=== PATIENT | female | born 1985 | race Caucasian/White ===

== ENCOUNTER → 2018-10-05 18:31 | Outpatient (CLI) | payer MEDICAID, SELFPAY ==
[2018-10-05 15:05] VITALS: BMI 32.2
[2018-10-06 17:15] LABS: Chlamydia Trachomatis by PCR POSITIVE (Negative); Neisserai gonorrhoeae by PCR Negative (Negative); Probe Check PASS; Sample Adequacy Control PASS; Specimen Processing Control PASS
[2018-10-13 11:11] LABS: HPV APTIMA, High Risk Positive (Negative)
== END ==
PROVIDERS: Nurse Practitioner Women's Health; Referring Provider Obstetrics & Gynecology; Visit Provider Obstetrics & Gynecology
DX: Z34.90 Encounter for supervision of normal pregnancy, unspecified, unspecified trimester (principal)
CPT/HCPCS: 87086; 87088; 87491; 87591; 87624; 88175; G0145

== ENCOUNTER → 2018-11-03 15:01 | Outpatient (CLI) | payer MEDICAID, SELFPAY ==
[2018-10-05 15:05] VITALS: BMI 32.2
[2018-11-03 15:24] LABS: Absolute Lymphocyte Count 1.59 X10^3/ul (0.83-4.51); Absolute Neutrophil Count 6.6 X10^3/uL (2.0-7.7); Basophil# 0.01 X10^3/uL; Basophil% 0.1 % (0-1); Eosinophil# 0.12 X10^3/uL; Eosinophils% 1.4 % (0-5); Hematocrit 34.6 % (37-47); Hemoglobin 11.7 g/dl (12.0-15.0); Lymphocyte # 1.59 X10^3/ul (4.0); Mean Corp Hgb Conc 33.8 g/gl (32-36); Mean Corpuscular Hgb 32.1 pg (27.0-32.0); Mean Corpuscular Volume 94.8 fL (81-99); Mean Platelet Vol. 10.1 fl (6.2-12.0); Monocyte# 0.51 X10^3/uL; Monocyte% 5.8 % (0-10); Neutrophil % 74.5 % (47-70); Platelet Count 200 K/mm3 (150-450); RBC Distribution Width CV 12.1 % (11.6-14.6); Red Blood Count 3.65 M/mm3 (4.2-5.4); White Blood Count 8.9 K/mm3 (4.4-11.0)
[2018-11-03 15:28] LABS: POSITIVE COUNT NO; POSITIVE DIFFERENTIAL NO; POSITIVE MORPHOLOGY NO
[2018-11-03 15:41] LABS: Glucose Challenge Gest 1H 50g 96 mg/dL (70-140)
[2018-11-03 16:34] LABS: HIV - WCH Non-Reactive (Nonreactive); Rubella IgG 137.7 IU/mL
[2018-11-04 20:21] LABS: Rapid Plasmin Reagin (RPR) NONREACTIVE (NONREACTIVE)
[2018-11-05 09:09] LABS: HEPATITIS B SURFACE AG Negative (Negative)
== END ==
PROVIDERS: Nurse Practitioner Women's Health; Referring Provider Obstetrics & Gynecology; Visit Provider Obstetrics & Gynecology
DX: O99.210 Obesity complicating pregnancy, unspecified trimester (principal); Z3A.00 Weeks of gestation of pregnancy not specified
CPT/HCPCS: 36415; 82950; 85025; 86592; 86703; 86762; 86850; 86900; 87340

== ENCOUNTER → 2018-12-10 14:05 | Outpatient (CLI) | payer MEDICAID, SELFPAY ==
[2018-12-03 10:06] VITALS: BMI 32.2
--- NOTE | 2018-12-10 14:08 | US_ITS ---
STUDY: SECOND AND THIRD TRIMESTER OBSTETRICAL ULTRASOUND REASON FOR EXAM: Female, 33 years old. Anatomy screen. G 5 P2 Ab2 LMP: 07/28/2018 TECHNIQUE: TECHNICAL QUALITY: Adequate. PRIOR ULTRASOUND: None. FINDINGS: There is a single intrauterine fetus. The fetus is in an transverse lie with the head on the maternal left side. There is demonstrated cardiac activity with a heart rate of 156 bpm. There is a normal amniotic fluid volume. The largest amniotic fluid pocket measures 3.1 x 5.1 cm. The placenta is posterior in location and is not low lying. There are Grade 0 placental changes. The cervix measures 3.8 in length. The bilateral adnexal regions are normal. BIOMETRY: BPD: 4.4 cm: 19 weeks, 3 days HC: 16.8 cm: 19 weeks, 3 days AC: 14 cm: 19 weeks, 3 days FL: 3 cm: 19 weeks, 1 days CI: 80 FL/BPD: 67 FL/AC: 21 HC/AC: 1.2 age by current US: 19 weeks, 3 days. BONNY by current US: 05/03/2019. Estimated weight: 282 grams, +/- 41 grams, 43 %. Age by LMP: 19 weeks, 2 days. BONNY by LMP: 05/04/2019. ANATOMY: Gender: Male Cranium: Normal lateral ventricles. Normal choroid plexus. Normal cerebellum. Normal cisterna magna. Normal face, nose and lips. Chest: Normal 4-chamber heart. Abdomen/Pelvis: Normal diaphragm. Normal stomach. Normal abdominal wall. Normal cord insertion. Normal 3 vessel cord. Normal kidneys. Normal bladder. Spine: Normal cervical spine. Normal thoracic spine. Normal lumbar spine. Normal sacrum. Extremities: Normal bilateral upper extremities. Normal bilateral lower extremities. US/OB Anatomy Scan IMPRESSION: Single live intrauterine of 19 week 3 day gestation with an BONNY of 05/03/2019. Normal anatomic survey. Posterior grade 0 placenta, not low lying. Electronically Signed: Roya Singh MD at 8:28 EDT , Service support ,
== END ==
PROVIDERS: Referring Provider Obstetrics & Gynecology; Visit Provider Obstetrics & Gynecology
DX: Z34.92 Encounter for supervision of normal pregnancy, unspecified, second trimester (principal)
CPT/HCPCS: 76805

== ENCOUNTER → 2019-01-05 13:38 | Outpatient (CLI) | payer MEDICAID, SELFPAY ==
[2019-01-05 10:27] VITALS: BMI 32.2
[2019-01-05 16:28] LABS: Chlamydia Trachomatis by PCR Negative (Negative); Neisserai gonorrhoeae by PCR Negative (Negative); Probe Check PASS; Sample Adequacy Control PASS; Specimen Processing Control PASS
== END ==
PROVIDERS: Referring Provider Obstetrics & Gynecology; Visit Provider Obstetrics & Gynecology
DX: O98.819 Other maternal infectious and parasitic diseases complicating pregnancy, unspecified trimester (principal); A74.9 Chlamydial infection, unspecified; Z3A.00 Weeks of gestation of pregnancy not specified
CPT/HCPCS: 87491; 87591

== ENCOUNTER → 2019-02-18 09:16 | Outpatient (CLI) | payer MEDICAID, SELFPAY ==
[2019-02-04 10:38] VITALS: BMI 32.2
[2019-02-18 10:24] LABS: Glucose Challenge Gest 1H 50g 121 mg/dL (70-140)
[2019-02-18 10:25] LABS: Absolute Lymphocyte Count 2.25 X10^3/ul (0.83-4.51); Absolute Neutrophil Count 9.7 X10^3/uL (2.0-7.7); Basophil# 0.02 X10^3/uL; Basophil% 0.2 % (0-1); Eosinophil# 0.17 X10^3/uL; Eosinophils% 1.3 % (0-5); Hematocrit 31.9 % (37-47); Hemoglobin 10.7 g/dl (12.0-15.0); Lymphocyte # 2.25 X10^3/ul (4.0); Lymphocyte % 17.5 % (19-41); Mean Corp Hgb Conc 33.5 g/gl (32-36); Mean Corpuscular Hgb 31.8 pg (27.0-32.0); Mean Corpuscular Volume 94.7 fL (81-99); Mean Platelet Vol. 9.7 fl (6.2-12.0); Monocyte# 0.66 X10^3/uL; Monocyte% 5.1 % (0-10); Neutrophil # 9.68 X10^3/uL (2.7-7.7); Neutrophil % 75.4 % (47-70); POSITIVE COUNT NO; POSITIVE DIFFERENTIAL NO; POSITIVE MORPHOLOGY NO; Platelet Count 201 K/mm3 (150-450); RBC Distribution Width CV 13.2 % (11.6-14.6); RBC Distribution Width SD 45.5 fl (35.1-43.9); Red Blood Count 3.37 M/mm3 (4.2-5.4); White Blood Count 12.9 K/mm3 (4.4-11.0)
== END ==
PROVIDERS: Referring Provider Obstetrics & Gynecology; Visit Provider Obstetrics & Gynecology
DX: Z34.90 Encounter for supervision of normal pregnancy, unspecified, unspecified trimester (principal)
CPT/HCPCS: 36415; 82950; 85025

== ENCOUNTER → 2019-03-22 08:53 | Outpatient (CLI) | payer MEDICAID, SELFPAY ==
[2019-03-16 11:33] VITALS: BMI 36.5
--- NOTE | 2019-03-22 08:55 | US_ITS ---
STUDY: SECOND AND THIRD TRIMESTER OBSTETRICAL ULTRASOUND - LIMITED REASON FOR EXAM: Female, 33 years old. growth. LMP: July 28, 2018. PRIOR ULTRASOUND: December 10, 2018. TECHNIQUE: TECHNICAL QUALITY: Adequate. FINDINGS: There is a single intrauterine fetus. The fetus is in a cephalic presentation. There is demonstrated cardiac activity with a heart rate of 147 bpm. There is a normal amniotic fluid volume. The largest amniotic fluid pocket measures 6.1 cm. The amniotic fluid index (MAICOL) is 18.82 cm. The placenta is posterior in location and is not low lying. There are Grade 1 placental changes. The cervix measures 2.2 cm in length. BIOMETRY: BPD: 8.48 cm: 34 weeks, 2 days HC: 30.81 cm: 34 weeks, 3 days AC: 29.97 cm: 34 weeks, 0 days FL: 6.51 cm: 33 weeks, 4 days Age by LMP: 33 weeks, 6 days. BONNY by LMP: May 04, 2019. age by prior US: 34 weeks, 0 days. BONNY by prior US: May 03, 2019. age by current US: 34 weeks, 1 days. BONNY by current US: May 02, 2019. Estimated weight: 2302 grams, +/- 336 grams, 44 percentile. Gender: Indeterminant US/OB Limited With Biometrics IMPRESSION: 1. Live single intrauterine at 34 weeks, 1 day. BONNY is May 02, 2019. There is adequate interval growth since prior ultrasound. 2. EFW of 2302 g. 3. MAICOL of 18.82 cm. 4. Posterior grade 1 placenta. 5. Vertex presentation. Electronically Signed: Ron Arce DO at 16:50 EDT Tel [phone], Service support ,
== END ==
PROVIDERS: Referring Provider Obstetrics & Gynecology; Visit Provider Obstetrics & Gynecology
DX: O36.5930 Maternal care for other known or suspected poor fetal growth, third trimester, not applicable or unspecified (principal); Z3A.33 33 weeks gestation of pregnancy
CPT/HCPCS: 76816

== ENCOUNTER → 2019-04-13 17:06 | Outpatient (CLI) | payer MEDICAID, SELFPAY ==
[2019-04-13 10:41] VITALS: BMI 36.5
[2019-04-13 19:49] LABS: Chlamydia Trachomatis by PCR Negative (Negative); Neisserai gonorrhoeae by PCR Negative (Negative); Probe Check PASS; Sample Adequacy Control PASS; Specimen Processing Control PASS
== END ==
LOC: LABSPEC 17:09 → LAB.FUTURE 17:43
PROVIDERS: Referring Provider Obstetrics & Gynecology; Visit Provider Obstetrics & Gynecology
DX: O98.813 Other maternal infectious and parasitic diseases complicating pregnancy, third trimester (principal); Z3A.36 36 weeks gestation of pregnancy
CPT/HCPCS: 87081; 87491; 87591

== ENCOUNTER 2019-04-14 15:56 | Outpatient (CLI) | payer MEDICAID, SELFPAY ==
[2019-04-13 10:41] VITALS: BMI 36.5
[2019-04-14 16:15] VITALS: BMI 35.6
[2019-04-14] MEDS: Cefazolin 2 GM in 0.9% Normal Saline 100 ML IV (17:23)
[2019-04-14 17:46] LABS: Anion Gap 7 (5-15); BUN 8 mg/dL (7-18); BUN/Creat Ratio 14.1 RATIO (10-20); Calcium,Total 8.6 mg/dL (8.5-10.1); Chloride 105 mmol/L (98-107); Creatinine, Serum 0.57 mg/dL (0.55-1.02); EST Glomerular Filtration Rate 131 mL/min (>60); Est Glom Filt Rate - Afr Amer 159 mL/min (>60); Glucose 89 mg/dL (74-106); Potassium 4.1 mmol/L (3.5-5.1); Sodium Level 134 mmol/L (136-145)
[2019-04-14 17:53] LABS: Differential Indicated SCAN CRITERIA MET; Hematocrit 32.6 % (37-47); Hemoglobin 10.8 g/dL (12.0-15.0); Mean Corp Hgb Conc 33.1 g/dL (32-36); Mean Corpuscular Hgb 31.6 pg (27.0-32.0); Mean Corpuscular Volume 95.3 fL (81-99); Mean Platelet Vol. 10.1 fl (6.2-12.0); POSITIVE COUNT NO; POSITIVE DIFFERENTIAL YES; POSITIVE MORPHOLOGY NO; Platelet Count 176 K/mm3 (150-450); RBC Distribution Width CV 13.5 % (11.6-14.6); RBC Distribution Width SD 46.6 fl (35.1-43.9); Red Blood Count 3.42 M/mm3 (4.2-5.4); White Blood Count 11.4 K/mm3 (4.4-11.0)
[2019-04-14 17:54] LABS: Absolute Lymphocyte Count 0.54 X10^3/uL (0.83-4.51); Absolute Neutrophil Count 10.3 X10^3/uL (2.0-7.7); Basophil# 0.01 X10^3/uL; Basophil% 0.1 % (0-1); Eosinophil# 0.03 X10^3/uL; Eosinophils% 0.3 % (0-5); Lymphocyte # 0.54 X10^3/ul (4.0); Lymphocyte % 4.8 % (19-41); Monocyte# 0.39 X10^3/uL; Monocyte% 3.4 % (0-10); Neutrophil # 10.28 X10^3/uL (2.7-7.7); Neutrophil % 90.5 % (47-70)
[2019-04-14 17:57] LABS: Anisocytosis RARE; Macrocytosis RARE; Platelet Estimate ADEQUATE (ADEQ); Red Cell Morphology N CHROM NORMAL (NORM C&C)
--- NOTE | 2019-04-16 02:39 | OB.TRI.PN_ITS ---
Progress Notes Date of Service: 04/14/19 Progress Note: 33-year-old at 37 weeks presents with left facial cellulitis after dental abscess drainage. Patient is having pain in the area but it is now improving with Tylenol with codeine. Patient denies any fever or difficulty breathing. She has some limited mobility of the left left jaw and was seen in the dentist office who opened up the tooth and drained out 5 cc of infected fluid and recommended that she be evaluated to ensure the is okay. heart tone 140s to 150s moderate variability reactive no decelerations category 1 tracing [place]: Irregular contractions Assessment and plan 33-year-old with left facial cellulitis on amoxicillin per dentist recommendation no leukocytosis, 1 dose of IV Ancef given and patient afebrile discharge to home for oral antibiotics and follow-up with dentist as an outpatient. Laboratory Studies: Laboratory Tests 04/14/19 04/14/19 Range/Units 16:55 16:55 WBC 11.4 H (4.4-11.0) K/mm3 RBC 3.42 L (4.2-5.4) M/mm3 Hgb 10.8 L (12.0-15.0) g/dL Hct 32.6 L (37-47) % MCV 95.3 (81-99) fL MCH 31.6 (27.0-32.0) pg MCHC 33.1 (32-36) g/dL RDW Std Deviation 46.6 H (35.1-43.9) fl RDW Coeff of Boogie 13.5 (11.6-14.6) % Plt Count 176 (150-450) K/mm3 MPV 10.1 (6.2-12.0) fl Immature Gran % (Auto) 0.900 (0.0-0.9) % Neut % (Auto) 90.5 H (47-70) % Lymph % (Auto) 4.8 L (19-41) % [place] % (Auto) 3.4 (0-10) % Eos % (Auto) 0.3 (0-5) % Baso % (Auto) 0.1 (0-1) % Absolute Neuts (auto) 10.3 H (2.0-7.7) X10^3/uL Absolute Lymphs (auto) 0.54 L (0.83-4.51) X10^3/uL Differential Comment SEE COMMENT Platelet Estimate ADEQUATE (ADEQ) RBC Morphology N CHROM (NORM C&C) NORMAL Anisocytosis RARE Macrocytosis RARE Sodium 134 L (136-145) mmol/L Potassium 4.1 (3.5-5.1) mmol/L Chloride 105 (98-107) mmol/L Carbon Dioxide 22.0 (21.0-32.0) mmol/L Anion Gap 7 (5-15) BUN 8 (7-18) mg/dL Creatinine 0.57 (0.55-1.02) mg/dL Estim Creat Clear Calc 118.30 ml/min Est GFR (MDRD) Af Amer 159 (>60) mL/min Est GFR (MDRD) Non-Af 131 (>60) mL/min BUN/Creatinine Ratio 14.1 (10-20) RATIO Glucose 89 (74-106) mg/dL Calcium 8.6 (8.5-10.1) mg/dL Multi Select Codes - Urinary/Genital Urinary/Genital CPT Codes: 99282-03 non-stress test Interp
== END 2019-04-14 18:45 | disposition home or self-care (01) ==
LOC: WPOUT 15:56 → WP 15:57
PROVIDERS: Referring Provider Obstetrics & Gynecology; Visit Provider Obstetrics & Gynecology
DX: O26.893 Other specified pregnancy related conditions, third trimester (principal); L03.211 Cellulitis of face; Z3A.37 37 weeks gestation of pregnancy
CPT/HCPCS: 96365; 36415; 59025; 59050; 80048; 85025; 99218; G0378

== ENCOUNTER 2019-04-15 12:15 | Observation (INO) | payer MEDICAID, SELFPAY ==
[2019-04-14 16:15] VITALS: BMI 35.6
[2019-04-15 12:47] VITALS: BMI 35.3
[2019-04-15 13:36] LABS: Absolute Lymphocyte Count 0.49 X10^3/uL (0.83-4.51); Absolute Neutrophil Count 9.2 X10^3/uL (2.0-7.7); Basophil# 0.03 X10^3/uL; Basophil% 0.3 % (0-1); Eosinophil# 0.02 X10^3/uL; Eosinophils% 0.2 % (0-5); Hematocrit 32.6 % (37-47); Hemoglobin 11.2 g/dL (12.0-15.0); Lymphocyte # 0.49 X10^3/ul (4.0); Lymphocyte % 4.6 % (19-41); Mean Corp Hgb Conc 34.4 g/dL (32-36); Mean Corpuscular Hgb 32.2 pg (27.0-32.0); Mean Corpuscular Volume 93.7 fL (81-99); Mean Platelet Vol. 10.3 fl (6.2-12.0); Monocyte# 0.75 X10^3/uL; Monocyte% 7.1 % (0-10); NRBC Flagged by Analyzer 0 % (0-5); Neutrophil # 9.19 X10^3/uL (2.7-7.7); Neutrophil % 86.8 % (47-70); POSITIVE DIFFERENTIAL YES; Platelet Count 191 K/mm3 (150-450); RBC Distribution Width CV 13.5 % (11.6-14.6); RBC Distribution Width SD 46.3 fl (35.1-43.9); Red Blood Count 3.48 M/mm3 (4.2-5.4); White Blood Count 10.6 K/mm3 (4.4-11.0)
[2019-04-15 13:37] LABS: Differential Indicated SCAN CRITERIA MET
[2019-04-15] MEDS: Lactated Ringers 1,000 ML 125 ML IV ×3 (13:38→22:18)
[2019-04-15 13:59] LABS: ALB/GLOB Ratio 0.5 RATIO (0.9-2.4); AST(SGOT) 10 U/L (15-37); Alanine Aminotransfer ALT/SGPT 10 U/L (13-56); Albumin, Serum 2.4 g/dL (3.2-5.0); Alkaline Phosphatase 216 U/L (45-117); Anion Gap 9 (5-15); BUN 5 mg/dL (7-18); BUN/Creat Ratio 8.8 RATIO (10-20); Calcium,Total 8.6 mg/dL (8.5-10.1); Chloride 105 mmol/L (98-107); Creatinine, Serum 0.57 mg/dL (0.55-1.02); EST Glomerular Filtration Rate 131 mL/min (>60); Est Glom Filt Rate - Afr Amer 159 mL/min (>60); Globulin 4.8 g/dL (2.2-4.2); Glucose 112 mg/dL (74-106); Potassium 3.7 mmol/L (3.5-5.1); Protein, Total 7.2 g/dL (6.4-8.2); Sodium Level 136 mmol/L (136-145)
[2019-04-15] MEDS: oxyCODONE 5 MG Tablet PO (14:32)
[2019-04-15 14:46] VITALS: BP 139/74; PULSE 100; RESP 24; TEMP 37.4
--- NOTE | 2019-04-15 15:45 | HP.PCM_ITS ---
- Problem List (1) Cellulitis, face Status: Acute (2) Anemia during in second trimester Status: Acute Comment: Start iron (3) LGSIL on Pap smear of cervix Status: Acute (4) ASCUS with positive high risk human papillomavirus of vagina Status: Acute (5) Chlamydia infection affecting Status: Acute Qualifiers: Trimester: third trimester Qualified Code(s): O98.813 - Other maternal infectious and parasitic diseases complicating , third trimester; A74.9 - Chlamydial infection, unspecified Comment: 10/07/18:treated. Repeat negative and also negative at 36 wk (6) Tobacco use complicating Status: Acute Qualifiers: Trimester: third trimester Qualified Code(s): O99.333 - Smoking (tobacco) complicating , third trimester (7) Status: Acute Qualifiers: Weeks of gestation: 37 weeks Qualified Code(s): Z3A.37 - 37 weeks gestation of Comment: Declines genetic and carrier screen, FOB sickle cell carrier. (8) Supervision of other normal Status: Acute Comment: PRR Grav 4/2 BONNY 05/04/19 boy Chloe. VÍCTOR Santos (many) (9) Asthma Status: Chronic Qualifiers: Asthma severity: mild Asthma persistence: intermittent Asthma complication type: uncomplicated Qualified Code(s): J45.20 - Mild intermittent asthma, uncomplicated History Date of Admission: 04/16/19 Final BONNY: 05/04/19 Gestational age: 37 Weeks and 3 Days History of this : This is a 33 year-old, , at 37 weeks 2 days weeks gestational age presents with increasing left facial swelling and cellulitis after abscess tooth was drained. Patient was placed on clindamycin several days ago and then switched to amoxicillin yesterday whenever she had drainage by her dentist. Since then she has had increasing pain and swelling in the area and limited mobility of her jaw and low-grade elevated temperatures. She denies any difficulty breathing chest pain or shortness of breath but does feel it scratchiness to her throat.. Medical History: Medical History (Last Reviewed 04/15/19 @ 17:31 by Chelo Singletary) Asthma (Chronic) J45.909 Abnormal Pap smear of cervix R87.619 Surgical History: Surgical History (Last Reviewed 04/15/19 @ 11:33 by Kavitha Carbajal) S/P right knee surgery Z98.890 Allergies No Known Allergies Allergy (Verified 04/15/19 11:32) Home Medications: Home Medications Acetaminophen with Codeine [Acetaminophen-Cod #3 Tablet] 1 ea PO 04/14/19 Amoxicillin 1,750 mg PO BID 04/14/19 Vits [Prenatabs FA] 1 tab PO DAILY MDD 04/14/19 Docosahexanoic Acid [ DHA] 200 mg PO DAILY 04/15/19 Smoking Status: Heavy Smoker (>10/day) Number of Fetus(es): 1 NST - FHR Rate Baby A Baseline: 130 Variability:: Moderate Accelerations:: 15 x 15 Decelerations:: None NST Reactive:: Yes FHR Category:: Category I Uterine Activity:: Irregular contractions History Past Pregnancies: Past Pregnancies Previous term deliveries uncomplicated vaginal Expected Infant Delivery Method: Spontaneous Vaginal Review of Systems Constitutional: Reports: Fever, Night Sweats. Denies: Malaise Eyes: Denies: Blurred vision, Vision Change HEENT: Denies: Head Aches, Visual Changes Cardiovascular: Denies: Chest Pain, Palpitations Respiratory: Denies: Cough, Shortness of Breath, Wheezing Gastrointestinal: Reports: Nausea. Denies: Abdominal Pain, Diarrhea, Vomiting Genitourinary: Denies: Dysuria, Hematuria Musculoskeletal: Denies: Joint Pain, Muscle pain Skin: Denies: Lesions, Rash Neurological: Denies: Blurred vision, Focal weakness, Headaches Psychiatric: Denies: Anxiety, Depression Endocrine: Denies: Heat/ Cold Intolerance Hematologic/ Lymphatic: Denies: Easy Bruising, Easy Bleeding Physical Exam Vitals: Vital Signs Temp Pulse Resp BP 99.3 F H 100 24 H 139/74 H 04/15/19 14:46 04/15/19 14:46 04/15/19 14:46 04/15/19 14:46 General: Alert, Oriented x3, - - in significant pain HEENT: Atraumatic, - - left facial swelling to infraorbital and submandibular region, no drainage, tender and limited jow mobility Cardiovascular: Regular Rhythm, Normal S1, Normal S2, Tachycardic Lungs: Clear to auscultation, Normal air movement Abdomen: Soft, Non Tender, Gravid Neurological: Deep Tendon Reflexes 2+/4 and Symmetrical. 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: Normal external genitalia Estimated gestational size: Appropriate for gestational size Presentation: Cephalic Cervix Dilation (cm): 2 Assessment/Plan All Active Problems (Last Reviewed 04/15/19 @ 17:31 by Chelo Singletary) Cellulitis, face (Acute) Anemia during in second trimester (Acute) LGSIL on Pap smear of cervix (Acute) ASCUS with positive high risk human papillomavirus of vagina (Acute) Chlamydia infection affecting (Acute) Tobacco use complicating (Acute) (Acute) Supervision of other normal (Acute) This is a 33 year-old, , at 37w2d weeks gestational age presents with left facial cellulitis status post dental abscess drainage. Patient admitted for observation and IV antibiotics with Zosyn. IV steroids started for severe inflammatory reaction. Called and discussed with dentist, he had already opened up the area similar to a root canal and drained fluid which he states he did not send for culture due to likely it being polymicrobial. ENT consultation and no airway compromised. Monitor and provide support.
[2019-04-15] MEDS: dexAMETHasone 10 MG/ML Vial IV (16:04)
[2019-04-15] MEDS: Acetaminophen 325 MG Tablet 650 MG PO ×2 (16:12→22:18)
--- NOTE | 2019-04-15 16:18 | PCM.CONS.GEN ---
Problem List (1) Cellulitis, face Status: Acute Reason for Consult Date of Consultation: 04/15/19 Reason for Consultation: facial cellulitis after dental abscess, 37 weeks gestation History of Present Illness: The patient is a 33 year old F who underwent a dental procedure of the left lower mandibular dental premolar tooth as there has been infection in this location. Initially this had shown improvement however this abruptly worsened over the last 24 to 48 hours with significant pain and swelling of the left cheek. She is recently had a root canal procedure through her dentist. She had been seen in the ER and treated with clindamycin as an outpatient however continued to have progression of her pain and swelling and presented today for evaluation and admission for intravenous antibiotic therapy. I was called by Dr. Khoi Walls who requested consultation for assessment of airway and further management recommendations. We did discuss that this was a likely dental source of infection but in the absence of an oral surgeon for consultation I would be agreeable to see her for evaluation however should this proved to be in need of dental treatment that transfer for availability of this sort of surgical procedure may be required. The patient denies any significant dysphasia or shortness of breath. She denies any hoarseness. She does have some neck pain on the left side radiating along the side of the neck that is worsened with swallowing. She reports outpatient oral antibiotic therapy of clindamycin failed to produce relief. She denies any prior facial or dental infections. She is 37 weeks of gestation and subsequent to admission has developed some contractions. [] Past Medical History Past Medical History (Chronic Problems): Chronic Problems (Last Reviewed 04/15/19 @ 11:33 by Kavitha Carbajal) Asthma (Chronic) Medical History: Medical History (Last Reviewed 04/15/19 @ 11:33 by Kavitha Carbajal) Asthma (Chronic) J45.909 Abnormal Pap smear of cervix R87.619 Allergies No Known Allergies Allergy (Verified 04/15/19 11:32) Home Medications: Ambulatory Orders Medication Instructions Recorded docosahexanoic acid 200 mg capsule 200 mg PO DAILY #30 cap 11/04/18 Acetaminophen with Codeine 1 ea PO 04/14/19 [Acetaminophen-Cod #3 Tablet] Amoxicillin 1,750 mg PO BID 04/14/19 Vits [Prenatabs FA] 1 tab PO DAILY 04/14/19 Surgical History: Surgical History (Last Reviewed 04/15/19 @ 11:33 by Kavihta Carbajal) S/P right knee surgery Z98.890 Smoking Status: Heavy Smoker (>10/day) Review of Systems Constitutional: Denies: Anorexia, Chills, Fever, Night Sweats Eyes: Denies: Blurred vision, Double vision, Pain HEENT: Reports: Sore Throat, - - Pain and swelling over the left cheek. Denies: Difficulty Hearing, Difficulty Swallowing, Ear Pain, Eye Pain, Head Aches, Nasal Congestion, Sinus Congestion, Sinus Drainage Cardiovascular: Denies: Chest Pain, Chest Pressure, Chest Tightness Respiratory: Denies: Cough, Hemoptysis, Shortness of Breath Gastrointestinal: Denies: Nausea, Vomiting Skin: Denies: Dryness, Jaundice Neurological: Denies: Balance problems, Blurred vision, Difficulty swallowing Psychiatric: Denies: Anxiety, Depression Endocrine: Reports: - - Hematologic/ Lymphatic: Denies: Anemia, Easy Bruising, Easy Bleeding Patient Problems: Active and Suspected Problems (Last Reviewed 04/15/19 @ 11:33 by Kavitha Carbajal) Cellulitis, face (Acute) Subjective: Patient reports she is having pain in the left cheek and difficulty opening the mouth. Objective: Alert female in mild distress due to pain of the left cheek where there is noted to be firm induration but minimal erythema. She is being monitored in her 37th week of gestation. - Physical Exam General: Alert, Oriented x3, Cooperative HEENT: Atraumatic, PERRLA, EOMI Oral: Moist Mucosa, No Gingival or Mucosal Lesions/ Ulcerations, - - There is noted to be a 2 cm area of induration over the left cheek. Examination of the dentition shows some mild erythema of the gingiva of the left mandible however there is no erythema or exudates. She does have a Molar tooth and reports that the premolar anterior to this had recently had a dental canal prior to the onset of this facial swelling and pain. There is noted to be 2 cm trismus. Tongue is noted to be soft and mobile. Floor mouth is normal and soft. The submental area is normal and soft. There is noted to be some mild tenderness along the left side of the neck but no significant palpable lymphadenopathy is noted. There is no crepitus or fluctuance over the area of induration of the cheek. There is no significant erythema, pointing, or drainage. Neck: Supple, No Nodes, Trachea Midline Lungs: Normal air movement, No rhonchi, No wheeze Cardiovascular: Regular rate, Regular Rhythm Abdomen: - - Gravid Extremities: No clubbing, No cyanosis, No edema Skin: No rashes, No breakdown Neurological: Cranial nerves II-XII grossly intact Psych/Mental Status: Alert and oriented to time, place, person, mood and affect Vital Signs Temp Pulse Resp BP 99.3 F H 100 24 H 139/74 H 04/15/19 14:46 04/15/19 14:46 04/15/19 14:46 04/15/19 14:46 Weight: 90.492 kg Body Mass Index (BMI) 35.3 Intake and Output for Last 24 Hours 04/13/19 04/14/19 04/15/19 23:59 23:59 23:59 Intake Total 272.92 / 272.92 Output Total 200 / 200 Balance 72.92 / 72.92 Laboratory Tests Past 24 Hrs 04/15/19 04/15/19 04/15/19 13:10 13:10 14:05 WBC 10.6 RBC 3.48 L Hgb 11.2 L Hct 32.6 L MCV 93.7 MCH 32.2 H MCHC 34.4 RDW Std Deviation 46.3 H RDW Coeff of Boogie 13.5 Plt Count 191 MPV 10.3 Immature Gran % (Auto) 1.000 H Neut % (Auto) 86.8 H Lymph % (Auto) 4.6 L [place] % (Auto) 7.1 Eos % (Auto) 0.2 Baso % (Auto) 0.3 Absolute Neuts (auto) 9.2 H Absolute Lymphs (auto) 0.49 L Nucleated RBC % 0 Differential Comment COMMENT Sodium 136 Potassium 3.7 Chloride 105 Carbon Dioxide 22.0 Anion Gap 9 BUN 5 L Creatinine 0.57 Estim Creat Clear Calc 118.30 Est GFR (MDRD) Af Amer 159 Est GFR (MDRD) Non-Af 131 BUN/Creatinine Ratio 8.8 L Glucose 112 H Calcium 8.6 Total Bilirubin 0.40 AST 10 L ALT 10 L Alkaline Phosphatase 216 H Total Protein 7.2 Albumin 2.4 L Globulin 4.8 H Albumin/Globulin Ratio 0.5 L Blood Type O POSITIVE Antibody Screen NEGATIVE Assessment/Plan All Active Problems (Last Reviewed 04/15/19 @ 11:33 by Kavitha Carbajal) Cellulitis, face (Acute) Anemia during in second trimester (Acute) LGSIL on Pap smear of cervix (Acute) ASCUS with positive high risk human papillomavirus of vagina (Acute) Chlamydia infection affecting (Acute) Tobacco use complicating (Acute) (Acute) Supervision of other normal (Acute) Patient is a 33-year-old female and her 37th week of gestation with a new dental infection with cellulitis of the left cheek after root canal. This is failed outpatient therapy on clindamycin oral therapy. She has been admitted for intravenous antibiotic therapy of Zosyn. She has been given dose of Decadron to help with pain and inflammation at my recommendation by Dr. Khoi Walls. I see no evidence of hugh abscess, floor of mouth edema, or threatened Ranjan's angina. We did discuss symptoms of this including fullness of the floor mouth, difficulty moving her tongue, change in voice, or difficulty swallowing or breathing. The patient denies the symptoms currently. I do not see any hugh purulence or erythema around the reported tooth that was worked on recently. This remains the most likely cause of her facial cellulitis however. I would expect improvement on intravenous antibiotic therapy in the next 24 to 48 hours. Attention to pain management, warm compresses and massage to the area, and fluid hydration is advised. Given that she is in her 37th week of gestation I would anticipate that nature of this infection may precipitate delivery. If imaging would be indicated ultrasound of this area would likely provide adequate information and reduce exposure to ionizing radiation from x-rays and would be preferred in the setting. I have discussed my recommendations with the patient, her nurse, and Dr. Khoi Walls who is in agreement with this course of action.
--- NOTE | 2019-04-15 21:35 | NURSING ---
This RN performing V/S every hour and shift assessment. these both to be documented in QS system.
[2019-04-16] MEDS: dexAMETHasone 10 MG/ML Vial IV ×2 (00:12→09:14)
[2019-04-16 02:25] VITALS: BP 118/66; PULSE 90; RESP 20; TEMP 36
[2019-04-16] MEDS: Acetaminophen 325 MG Tablet 650 MG PO ×2 (04:13→10:59)
[2019-04-16 06:00] VITALS: BP 98/51; PULSE 74; RESP 20; TEMP 36.4
[2019-04-16 06:11] LABS: Absolute Lymphocyte Count 0.77 X10^3/uL (0.83-4.51); Absolute Neutrophil Count 8.7 X10^3/uL (2.0-7.7); Basophil# 0.01 X10^3/uL; Basophil% 0.1 % (0-1); Hematocrit 27.4 % (37-47); Hemoglobin 9.2 g/dL (12.0-15.0); Lymphocyte # 0.77 X10^3/ul (4.0); Lymphocyte % 7.6 % (19-41); Mean Corp Hgb Conc 33.6 g/dL (32-36); Mean Corpuscular Hgb 31.6 pg (27.0-32.0); Mean Corpuscular Volume 94.2 fL (81-99); Mean Platelet Vol. 10.3 fl (6.2-12.0); Monocyte# 0.61 X10^3/uL; NRBC Flagged by Analyzer 0 % (0-5); Neutrophil # 8.65 X10^3/uL (2.7-7.7); Neutrophil % 84.8 % (47-70); Platelet Count 207 K/mm3 (150-450); RBC Distribution Width CV 13.4 % (11.6-14.6); RBC Distribution Width SD 46.5 fl (35.1-43.9); Red Blood Count 2.91 M/mm3 (4.2-5.4); White Blood Count 10.2 K/mm3 (4.4-11.0)
[2019-04-16] MEDS: Lactated Ringers 1,000 ML 125 ML IV (06:28)
[2019-04-16 09:12] VITALS: BP 108/68; PULSE 99; RESP 16; TEMP 36.4; O2SAT 99
[2019-04-16] MEDS: Prenatal Vits Tablet 1 TABLET PO (09:14)
[2019-04-16] MEDS: Ferrous Sulfate 325 MG Tablet PO (09:14)
--- NOTE | 2019-04-16 09:30 | US_ITS ---
STUDY: OBSTETRICAL ULTRASOUND - BIOPHYSICAL PROFILE REASON FOR EXAM: Female, 33 years old. Evaluate well-being LMP: 07/28/2018 PRIOR ULTRASOUND: 03/22/2019 TECHNIQUE: Transabdominal TECHNICAL QUALITY: Adequate. FINDINGS: There is a single intrauterine fetus. The fetus is in a cephalic presentation. There is demonstrated cardiac activity with a heart rate of 136 bpm. There is a normal amniotic fluid volume. The largest amniotic fluid pocket measures 3.7 x 4.6 cm. The amniotic fluid index (MAICOL) is 13.6 cm. The placenta is posterior in location and is not low lying. There are Grade 2 placental changes. Age by LMP: 37 weeks, 3 days. BONNY by LMP: 05/04/2019. age by prior US: 37 weeks, 5 days. BONNY by prior US: 05/02/2019. BIOPHYSICAL PROFILE: Breathing Movements (FBM): 0 Gross Body Movements (GBM): 2 Tone (FT): 2 Amniotic Fluid Volume (AFV): 2 TOTAL SCORE: 8 US/Biophysical Prof W/O Non Stres IMPRESSION: biophysical profile of 01/29. Electronically Signed: Naeem Cyr DO at 11:15 EDT Tel , Service support ,
--- NOTE | 2019-04-16 09:37 | PCM.PN.OB ---
Patient Problems: Active and Suspected Problems (Last Reviewed 04/15/19 @ 17:31 by Chelo Singletary) Cellulitis, face (Acute) Subjective: patient doing well significant decreased swelling no CP SOB N V tolerating po and able to sleep comfortably, afebrile Objective: fht 140 moderate variability reactive one variable decel, overall reassuring and now cat I tracing [place]: regular initially then intermittent - Physical Exam General: Alert, Oriented x3 HEENT: - Oral: - - decreased facial swelling less than half the size with greater range of motion Lungs: Clear to auscultation Cardiovascular: Regular rate Abdomen: Soft, Non Tender Extremities: No edema Vital Signs Temp Pulse Resp BP 97.6 F L 74 20 H 98/51 L 04/16/19 06:00 04/16/19 06:00 04/16/19 06:00 04/16/19 06:00 Weight: 199 lb 8 oz Body Mass Index (BMI) 35.3 Intake and Output for Last 24 Hours 04/14/19 04/15/19 04/16/19 23:59 23:59 23:59 Intake Total 1303.34 / 1303.34 1050.00 / 1050.00 Output Total 200 / 200 Balance 1103.34 / 1103.34 1050.00 / 1050.00 Laboratory Tests Past 24 Hrs 04/15/19 04/15/19 04/15/19 13:10 13:10 14:05 WBC 10.6 RBC 3.48 L Hgb 11.2 L Hct 32.6 L MCV 93.7 MCH 32.2 H MCHC 34.4 RDW Std Deviation 46.3 H RDW Coeff of Boogie 13.5 Plt Count 191 MPV 10.3 Immature Gran % (Auto) 1.000 H Neut % (Auto) 86.8 H Lymph % (Auto) 4.6 L [place] % (Auto) 7.1 Eos % (Auto) 0.2 Baso % (Auto) 0.3 Absolute Neuts (auto) 9.2 H Absolute Lymphs (auto) 0.49 L Nucleated RBC % 0 Differential Comment COMMENT Sodium 136 Potassium 3.7 Chloride 105 Carbon Dioxide 22.0 Anion Gap 9 BUN 5 L Creatinine 0.57 Estim Creat Clear Calc 118.30 Est GFR (MDRD) Af Amer 159 Est GFR (MDRD) Non-Af 131 BUN/Creatinine Ratio 8.8 L Glucose 112 H Calcium 8.6 Total Bilirubin 0.40 AST 10 L ALT 10 L Alkaline Phosphatase 216 H Total Protein 7.2 Albumin 2.4 L Globulin 4.8 H Albumin/Globulin Ratio 0.5 L Blood Type O POSITIVE Antibody Screen NEGATIVE 04/16/19 06:00 WBC 10.2 RBC 2.91 L Hgb 9.2 L Hct 27.4 L MCV 94.2 MCH 31.6 MCHC 33.6 RDW Std Deviation 46.5 H RDW Coeff of Boogie 13.4 Plt Count 207 MPV 10.3 Immature Gran % (Auto) 1.500 H Neut % (Auto) 84.8 H Lymph % (Auto) 7.6 L [place] % (Auto) 6.0 Eos % (Auto) 0.0 Baso % (Auto) 0.1 Absolute Neuts (auto) 8.7 H Absolute Lymphs (auto) 0.77 L Nucleated RBC % 0 Differential Comment Sodium Potassium Chloride Carbon Dioxide Anion Gap BUN Creatinine Estim Creat Clear Calc Est GFR (MDRD) Af Amer Est GFR (MDRD) Non-Af BUN/Creatinine Ratio Glucose Calcium Total Bilirubin AST ALT Alkaline Phosphatase Total Protein Albumin Globulin Albumin/Globulin Ratio Blood Type Antibody Screen Medical Necessity - Tobacco Use Smoking Status: Heavy Smoker (>10/day) Assessment/Plan All Active Problems (Last Reviewed 04/15/19 @ 17:31 by Chelo Singletary) Cellulitis, face (Acute) Anemia during in second trimester (Acute) LGSIL on Pap smear of cervix (Acute) ASCUS with positive high risk human papillomavirus of vagina (Acute) Chlamydia infection affecting (Acute) Tobacco use complicating (Acute) (Acute) Supervision of other normal (Acute) 33 yo @ 37 weeks presents with facial cellulitis facial cellulitis significant improvement with IV zosyn and steroids. plan transition to augmentin today, doing well variable decel- recommend BPP
--- NOTE | 2019-04-16 10:38 | DCINST_ITS ---
- Discharge Diagnoses Current Active Problems: Current Active and Chronic Problems (Last Reviewed 04/15/19 @ 17:31 by Chelo Singletary) Cellulitis, face (Acute) You will use the following diet at home:: Regular Your food should be the consistency of: Soft (bite-sized & easy to chew/swallow) Discharge Activity: Return to Normal Activity May resume sexual activity in: No Restrictions Call your doctor if your incision/area has: Sudden Increased Bleeding, Increased Pain/ Swelling, Increased Redness Call your doctor if you observe: Fever of 101 or Higher, Chest pain, - - trouble swallowing or breathing, regular contractions or decreased movements Allergies/Adverse Reactions: Allergies diphenhydramine [From Benadryl] Adverse Reaction (Verified 04/15/19 19:47) Anaphylaxis Medications to take at Discharge Acetaminophen with Codeine [Acetaminophen-Cod #3 Tablet] 1 ea PO 04/14/19 Amoxicillin/Potassium Clav [Augmentin 875-125 Tablet] 1 ea PO BID #20 tab 04/16/19 Docosahexanoic Acid [ Dha] 200 mg PO DAILY #30 cap 04/16/19 Ferrous Sulfate 325 mg PO DAILY@0800 #30 tab 04/16/19 Vits [Prenatabs FA ] 1 tab PO DAILY #30 tab MDD 04/16/19 The following prescriptions were given: Amoxicillin/Potassium Clav [Augmentin 875-125 Tablet] 1 ea PO BID #20 tab Transmission Status: Received by [facility]/pharmacy #[id number] Ferrous Sulfate 325 mg PO DAILY@0800 #30 tab Transmission Status: Received by [facility] Vits [Prenatabs FA ] 1 tab PO DAILY #30 tab MDD Transmission Status: Received by [facility] Docosahexanoic Acid [ Dha] 200 mg PO DAILY #30 cap Transmission Status: Received by [facility] Primary Care Physician: Paola Delgado [Primary Care Provider] - Test Results: Test results from this visit will be discussed in further detail at your follow- up appointment, if applicable.
[2019-04-16 11:26] VITALS: BP 113/51; PULSE 86; RESP 16; TEMP 35.8; O2SAT 99
[2019-04-16] MEDS: Amox/Clavulanate 875 MG Tablet PO (12:41)
== END 2019-04-16 14:55 | disposition home or self-care (01) ==
LOC: WP 04-18 07:08
PROVIDERS: Admitting Provider Obstetrics & Gynecology; Referring Provider Obstetrics & Gynecology; Visit Provider Obstetrics & Gynecology
DX: O99.713 Diseases of the skin and subcutaneous tissue complicating pregnancy, third trimester (principal); Z3A.37 37 weeks gestation of pregnancy; K04.7 Periapical abscess without sinus; O99.513 Diseases of the respiratory system complicating pregnancy, third trimester; J45.20 Mild intermittent asthma, uncomplicated; O99.333 Smoking (tobacco) complicating pregnancy, third trimester; F17.200 Nicotine dependence, unspecified, uncomplicated; L03.211 Cellulitis of face
CPT/HCPCS: 96361 ×2; 96365; 96366 ×2; 96375; 96376; 36415; 59025; 59050; 76819; 80053; 85025; 86850; 86900; 86901; 87040; J7120; A4216

== ENCOUNTER 2019-04-17 16:30 | Outpatient (CLI) | payer MEDICAID, SELFPAY ==
[2019-04-17 17:16] VITALS: BMI 36.7
--- NOTE | 2019-04-17 21:13 | OB.TRI.PN_ITS ---
Progress Notes Date of Service: 04/17/19 Progress Note: heart tone 135 moderate variability reactive no decelerations category 1 tracing [place]: No regular contractions Assessment and plan abnormal testing and facial cellulitis, reassuring heart tones and reactive NST good movement. DC home kick counts. - Problem List (1) Abnormal test Status: Acute (2) Cellulitis, face Status: Acute Multi Select Codes - Urinary/Genital Urinary/Genital CPT Codes: 96231-73 non-stress test Interp
== END 2019-04-17 17:25 | disposition home or self-care (01) ==
LOC: WPOUT 16:42 → WP 16:43
PROVIDERS: Referring Provider Obstetrics & Gynecology; Visit Provider Obstetrics & Gynecology
DX: O26.899 Other specified pregnancy related conditions, unspecified trimester (principal); L03.211 Cellulitis of face; P09 Abnormal findings on neonatal screening; Z3A.00 Weeks of gestation of pregnancy not specified
CPT/HCPCS: 59025; 59050; 99218; G0378

== ENCOUNTER 2019-05-04 07:15 | Inpatient (IN) | payer MEDICAID, SELFPAY ==
[2019-04-29 09:46] VITALS: BMI 35.6
[2019-05-04 07:30] VITALS: BMI 36.8
[2019-05-04] MEDS: Lactated Ringers 1,000 ML 50 ML IV (07:40)
[2019-05-04] MEDS: Oxytocin 30 units/NS 500 ml 30 UNITS/500 ML IV.SOLN IV (08:05)
[2019-05-04 09:04] LABS: Absolute Lymphocyte Count 2.63 X10^3/uL (0.83-4.51); Absolute Neutrophil Count 10.1 X10^3/uL (2.0-7.7); Basophil# 0.05 X10^3/uL; Basophil% 0.4 % (0-1); Eosinophils% 1.4 % (0-5); Hematocrit 34.1 % (37-47); Hemoglobin 11.3 g/dL (12.0-15.0); Lymphocyte # 2.63 X10^3/ul (4.0); Lymphocyte % 18.5 % (19-41); Mean Corp Hgb Conc 33.1 g/dL (32-36); Mean Corpuscular Hgb 31.6 pg (27.0-32.0); Mean Corpuscular Volume 95.3 fL (81-99); Mean Platelet Vol. 10.5 fl (6.2-12.0); Monocyte# 0.99 X10^3/uL; NRBC Flagged by Analyzer 0 % (0-5); Neutrophil # 10.11 X10^3/uL (2.7-7.7); POSITIVE COUNT YES; RBC Distribution Width CV 14.2 % (11.6-14.6); RBC Distribution Width SD 49.4 fl (35.1-43.9); Red Blood Count 3.58 M/mm3 (4.2-5.4); White Blood Count 14.2 K/mm3 (4.4-11.0)
[2019-05-04 09:06] LABS: Differential Indicated SCAN CRITERIA MET
[2019-05-04 09:27] LABS: Platelet Estimate ADEQUATE (ADEQ)
--- NOTE | 2019-05-04 09:50 | NURSING ---
Lab resulted plt count unable to be resulted due to plt clumping. CBC redrawn.
[2019-05-04 09:57] LABS: Absolute Lymphocyte Count 2.76 X10^3/uL (0.83-4.51); Absolute Neutrophil Count 11.5 X10^3/uL (2.0-7.7); Basophil# 0.06 X10^3/uL; Basophil% 0.4 % (0-1); Eosinophil# 0.23 X10^3/uL; Eosinophils% 1.4 % (0-5); Hematocrit 34.8 % (37-47); Hemoglobin 11.7 g/dL (12.0-15.0); Lymphocyte # 2.76 X10^3/ul (4.0); Lymphocyte % 17.3 % (19-41); Mean Corp Hgb Conc 33.6 g/dL (32-36); Mean Corpuscular Hgb 31.9 pg (27.0-32.0); Mean Corpuscular Volume 94.8 fL (81-99); Mean Platelet Vol. 10.1 fl (6.2-12.0); Monocyte% 7.5 % (0-10); NRBC Flagged by Analyzer 0 % (0-5); Neutrophil # 11.45 X10^3/uL (2.7-7.7); Neutrophil % 71.7 % (47-70); Platelet Count 238 K/mm3 (150-450); RBC Distribution Width CV 14.3 % (11.6-14.6); RBC Distribution Width SD 49.2 fl (35.1-43.9); Red Blood Count 3.67 M/mm3 (4.2-5.4)
[2019-05-04 10:05] LABS: International Normalized Ratio 0.9; Prothrombin Time (Protime)PT. 12.4 SECONDS (11.7-14.9)
[2019-05-04] MEDS: Lactated Ringers 500 ML 999 ML IV ×2 (10:10→12:03)
[2019-05-04 10:13] LABS: Partial Thromboplast Time 27.5 Seconds (24.1-36.2)
[2019-05-04] MEDS: fentaNYL-bupivacaine (epidural) 100 ML BAG EPIDURAL ×2 (12:04→16:01)
[2019-05-04] MEDS: Lactated Ringers 1,000 ML 200 ML IV (15:23)
[2019-05-04] MEDS: Oxytocin 30 units/NS 500 ml 30 UNITS/500 ML IV.SOLN 334 UNITS IV (17:20)
--- NOTE | 2019-05-04 17:28 | HP.PCM_ITS ---
- Problem List (1) Encounter for induction of labor Status: Acute (2) Anemia during in second trimester Status: Acute Comment: Start iron (3) LGSIL on Pap smear of cervix Status: Acute (4) ASCUS with positive high risk human papillomavirus of vagina Status: Acute (5) Chlamydia infection affecting Status: Acute Qualifiers: Comment: 10/07/18:treated. Repeat negative and also negative at 36 wk (6) Tobacco use complicating Status: Acute Qualifiers: Comment: encouraged cessation (7) Status: Acute Qualifiers: Comment: Declines genetic, ntd, and carrier screen, FOB sickle cell carrier. (8) Supervision of other normal Status: Acute Comment: PRR Grav 4/2 BONNY 05/04/19 boy Lexi Santos. VÍCTOR Lao (many) (9) Asthma Status: Chronic Qualifiers: History Date of Admission: 04/16/19 Final BONNY: 05/04/19 Gestational age: 40 Weeks and 0 Days History of this : This is a 33 year-old, , at 40 weeks gestational age presents IOL on her due date. no vb lof good fm no regular ctx. Medical History: Medical History (Last Reviewed 04/29/19 @ 09:43 by Kavitha Carbajal) Asthma (Chronic) J45.909 Abnormal Pap smear of cervix R87.619 Surgical History: Surgical History (Last Reviewed 04/29/19 @ 09:43 by Kavitha Carbajal) S/P right knee surgery Z98.890 Allergies diphenhydramine [From Benadryl] Allergy (Verified 05/04/19 07:39) Anaphylaxis Penicillins Allergy (Verified 05/04/19 07:32) Unknown Home Medications: Home Medications Vits [Prenatabs FA ] 1 tab PO DAILY #30 tab MDD 04/16/19 Albuterol Inhaler [Ventolin Hfa] 05/04/19 Ferrous Sulfate 05/04/19 Smoking Status: Current every day smoker NST - FHR Rate Baby A Baseline: 130 Variability:: Moderate Accelerations:: 15 x 15 Decelerations:: None NST Reactive:: Yes FHR Category:: Category I Uterine Activity:: q 2-3 History Past Pregnancies: Past Pregnancies 2 previous term Labs: Mom's Labs & Results 05/04/19 05/04/19 05/04/19 07:48 07:48 09:45 WBC 14.2 H 16.0 H RBC 3.58 L 3.67 L Hgb 11.3 L 11.7 L Hct 34.1 L 34.8 L MCV 95.3 94.8 MCH 31.6 31.9 MCHC 33.1 33.6 RDW Std Deviation 49.4 H 49.2 H RDW Coeff of Boogie 14.2 14.3 Plt Count 238 MPV 10.5 10.1 Immature Gran % (Auto) 1.700 H 1.700 H Neut % (Auto) 71.0 H 71.7 H Lymph % (Auto) 18.5 L 17.3 L [place] % (Auto) 7.0 7.5 Eos % (Auto) 1.4 1.4 Baso % (Auto) 0.4 0.4 Absolute Neuts (auto) 10.1 H 11.5 H Absolute Lymphs (auto) 2.63 2.76 Nucleated RBC % 0 0 Platelet Estimate ADEQUATE PT INR APTT Blood Type O POSITIVE Antibody Screen NEGATIVE 05/04/19 09:45 WBC RBC Hgb Hct MCV MCH MCHC RDW Std Deviation RDW Coeff of Boogie Plt Count MPV Immature Gran % (Auto) Neut % (Auto) Lymph % (Auto) [place] % (Auto) Eos % (Auto) Baso % (Auto) Absolute Neuts (auto) Absolute Lymphs (auto) Nucleated RBC % Platelet Estimate PT 12.4 INR 0.9 APTT 27.5 Blood Type Antibody Screen Course Did the patient receive Yes care? Labs Blood Type: O RH: POSITIVE RPR/VDRL/Syphilis Nonreactive Rubella status Immune HbSAg Negative Date Done: 11/03/18 Chlamydia Negative Gonorrhea Negative HIV/AIDS Non-Reactive Group B Strep: Negative Current Obstetrical History Gestational Diabetes No Incompetent Cervix No Infertility No IUGR No Macrosomia No Hypertension/Pre-eclampsia No Placenta Previa/Abruption No PTL/PROM No Uterine anomaly No Oligohydramnios No Polyhydramnios No Multiple gestation No Past Medical History Asthma Yes: albuterol Diabetes No Hypertension No Heart disease No Mitral valve prolapse No Neurologic/Seizure disorder/ No Migraines Kidney disease No Liver disease No Varicosities No Clotting disorders/Hx of DVT No Thyroid Dysfunction No Other medical diseases No Psychiatric disorders No Major trauma No Abnormal PAP smear Yes Sleep apnea No Mammogram in the last 2 years No Social History Marital Status: SINGLE Alleged father Shilo Dominguez Smoking Yes Smoking Status Current every day smoker How long have you used pt was given norco during a previous stay at [facility] (years)? this facility Expected Delivery Method: Spontaneous Vaginal Review of Systems Constitutional: Denies: Fever, Malaise Eyes: Denies: Blurred vision, Vision Change HEENT: Denies: Head Aches, Visual Changes Cardiovascular: Denies: Chest Pain, Palpitations Respiratory: Denies: Cough, Shortness of Breath, Wheezing Gastrointestinal: Denies: Abdominal Pain, Diarrhea, Nausea, Vomiting Genitourinary: Denies: Dysuria, Hematuria Musculoskeletal: Denies: Joint Pain, Muscle pain Skin: Denies: Lesions, Rash Neurological: Denies: Blurred vision, Focal weakness, Headaches Psychiatric: Denies: Anxiety, Depression Endocrine: Denies: Heat/ Cold Intolerance Hematologic/ Lymphatic: Denies: Easy Bruising, Easy Bleeding Physical Exam General: Alert, Cooperative, No apparent distress HEENT: Atraumatic, Normocephalic. Negative for: Thyromegaly, Lymphadenopathy Cardiovascular: Regular rate Lungs: Normal air movement Abdomen: Soft, Non Tender, Gravid Neurological: Deep Tendon Reflexes 2+/4 and Symmetrical, Neuro grossly intact. Negative for: Clonus SLATE CUTTER: Normal external genitalia. Negative for: Vulvar lesions Estimated gestational size: Appropriate for gestational size Presentation: Cephalic Assessment/Plan All Active Problems (Last Reviewed 04/29/19 @ 09:43 by Kavitha Carbajal) Encounter for induction of labor (Acute) Anemia during in second trimester (Acute) LGSIL on Pap smear of cervix (Acute) ASCUS with positive high risk human papillomavirus of vagina (Acute) Chlamydia infection affecting (Acute) Tobacco use complicating (Acute) (Acute) Supervision of other normal (Acute) Abnormal test (Resolved) Cellulitis, face (Resolved) This is a 33 year-old, at 40 weeks gestational age presents IOL . iol pitocin, arom clear fluid, epidural gbs neg
--- NOTE | 2019-05-04 17:33 | PCM.OPRPT ---
Problem List (1) Encounter for induction of labor Status: Acute (2) Anemia during in second trimester Status: Acute Comment: Start iron (3) LGSIL on Pap smear of cervix Status: Acute (4) ASCUS with positive high risk human papillomavirus of vagina Status: Acute (5) Chlamydia infection affecting Status: Acute Qualifiers: Comment: 10/07/18:treated. Repeat negative and also negative at 36 wk (6) Tobacco use complicating Status: Acute Qualifiers: Comment: encouraged cessation (7) Status: Acute Qualifiers: Comment: Declines genetic, ntd, and carrier screen, FOB sickle cell carrier. (8) Supervision of other normal Status: Acute Comment: PRR Grav 4/2 BONNY 05/04/19 boy Chloe. VÍCTOR Santos (many) (9) Asthma Status: Chronic Qualifiers: Vaginal Delivery Maternal Presentation: Elective Induction Induction labor 40 weeks with Pitocin Method of Induction: Pitocin Amniotic Membrane Rupture Type: Artificial Amniotic Fluid Description: Clear Final BONNY: 05/04/19 Gestational age: 40 Weeks 0 Days Date of Procedure: 05/04/19 Pre-Operative Diagnosis: iol elective Post-Operative Diagnosis: same Surgery/ Procedure Performed: Spontaneous Vaginal Delivery Type of Anesthesia: Epidural Description of Procedure: Patient began pushing and delivered the head in the MIROSLAVA presentation. The head was delivered atraumatically . The anterior and posterior shoulders delivered without complication followed by the rest of the and the was placed on the maternal abdomen. Delayed cord clamping was employed for approximately 60 seconds. Cord was clamped and cut and gentle traction was applied to the cord and the placenta delivered spontaneously immediately following it was noted to be intact with three-vessel cord. The perineum and vagina were inspected and noted to have no laceration. EBL was 150 cc. Patient and tolerated delivery well. Presentation: MIROSLAVA Placental Delivery Description: Spontaneous Placenta Disposition: [facility] Multi Select Codes - Urinary/Genital Urinary/Genital CPT Codes: 48336 Vaginal Delivery+ PP Care([facility])
[2019-05-05] VITALS: BP 101/70; PULSE 70; RESP 18; TEMP 36
[2019-05-05 04:15] VITALS: BP 101/61; PULSE 70; RESP 18; TEMP 36.6
[2019-05-05] MEDS: Naproxen 250 MG Tablet 500 MG PO ×2 (04:18→13:37)
--- NOTE | 2019-05-05 07:45 | PN.OBGYN_ITS ---
Patient Problems: Active and Suspected Problems (Last Reviewed 04/29/19 @ 09:43 by Kavitha Carbajal) Encounter for induction of labor (Acute) Subjective: doing well no complaints pain controlled no CP SOB N V ambulating well tolerating po lochia moderate, going well - Physical Exam General: Alert, Oriented x3 Vital Signs Temp Pulse Resp BP 98 F 70 18 101/61 05/05/19 04:15 05/05/19 04:15 05/05/19 04:15 05/05/19 04:15 Weight: 207 lb 12.8 oz Body Mass Index (BMI) 36.8 Intake and Output for Last 24 Hours 05/03/19 05/04/19 05/05/19 23:59 23:59 23:59 Intake Total 3013.53 / 3013.53 Output Total 1675 / 1675 Balance 1338.53 / 1338.53 Laboratory Tests Past 24 Hrs 05/04/19 05/04/19 05/04/19 07:48 07:48 09:45 WBC 14.2 H 16.0 H RBC 3.58 L 3.67 L Hgb 11.3 L 11.7 L Hct 34.1 L 34.8 L MCV 95.3 94.8 MCH 31.6 31.9 MCHC 33.1 33.6 RDW Std Deviation 49.4 H 49.2 H RDW Coeff of Boogie 14.2 14.3 Plt Count 238 MPV 10.5 10.1 Immature Gran % (Auto) 1.700 H 1.700 H Neut % (Auto) 71.0 H 71.7 H Lymph % (Auto) 18.5 L 17.3 L [place] % (Auto) 7.0 7.5 Eos % (Auto) 1.4 1.4 Baso % (Auto) 0.4 0.4 Absolute Neuts (auto) 10.1 H 11.5 H Absolute Lymphs (auto) 2.63 2.76 Nucleated RBC % 0 0 Platelet Estimate ADEQUATE PT INR APTT Blood Type O POSITIVE Antibody Screen NEGATIVE 05/04/19 09:45 WBC RBC Hgb Hct MCV MCH MCHC RDW Std Deviation RDW Coeff of Boogie Plt Count MPV Immature Gran % (Auto) Neut % (Auto) Lymph % (Auto) [place] % (Auto) Eos % (Auto) Baso % (Auto) Absolute Neuts (auto) Absolute Lymphs (auto) Nucleated RBC % Platelet Estimate PT 12.4 INR 0.9 APTT 27.5 Blood Type Antibody Screen Medical Necessity - Tobacco Use Smoking Status: Current every day smoker Assessment/Plan All Active Problems (Last Reviewed 04/29/19 @ 09:43 by Kavitha Carbajal) Encounter for induction of labor (Acute) Anemia during in second trimester (Acute) LGSIL on Pap smear of cervix (Acute) ASCUS with positive high risk human papillomavirus of vagina (Acute) Chlamydia infection affecting (Acute) Tobacco use complicating (Acute) (Acute) Supervision of other normal (Acute) Abnormal test (Resolved) Cellulitis, face (Resolved) s/p PPD # 1 1. routine post delivery care 2. breast feeding- support given 3. rh positive 4. rubella immune
[2019-05-05 08:19] VITALS: BP 117/81; PULSE 99; RESP 16; TEMP 36.6; O2SAT 96
[2019-05-05] MEDS: Acetaminophen 500 MG Tablet 1000 MG PO ×2 (09:01→18:30)
[2019-05-05 11:39] VITALS: BP 108/73; PULSE 98; RESP 16; TEMP 36.4; O2SAT 96
[2019-05-05 15:38] VITALS: BP 108/77; PULSE 99; RESP 16; TEMP 36.4; O2SAT 97
[2019-05-05] MEDS: Senna/Docusate Sodium 1 Tablet PO (18:30)
[2019-05-05 19:35] VITALS: BP 111/73; PULSE 89; RESP 18; TEMP 36.5; O2SAT 99
[2019-05-06 02:00] VITALS: BP 102/59; PULSE 74; RESP 16; TEMP 36.6
--- NOTE | 2019-05-06 04:32 | PCM.PN.OB ---
Patient Problems: Active and Suspected Problems (Last Reviewed 04/29/19 @ 09:43 by Kavitha Carbajal) Encounter for induction of labor (Acute) Subjective: doing well no complaints pain controlled no CP SOB N V ambulating well tolerating po lochia moderate, going well - Physical Exam General: Alert, Oriented x3 Vital Signs Temp Pulse Resp BP Pulse Ox 97.8 F 74 16 102/59 L 99 05/06/19 02:00 05/06/19 02:00 05/06/19 02:00 05/06/19 02:00 05/05/19 19:35 Oxygen Delivery Method Room Air Weight: 207 lb 12.8 oz Body Mass Index (BMI) 36.8 Intake and Output for Last 24 Hours 05/04/19 05/05/19 05/06/19 23:59 23:59 23:59 Intake Total 3013.53 / 3013.53 Output Total 1675 / 1675 Balance 1338.53 / 1338.53 Medical Necessity - Tobacco Use Smoking Status: Current every day smoker Assessment/Plan All Active Problems (Last Reviewed 04/29/19 @ 09:43 by Kavitha Carbajal) Encounter for induction of labor (Acute) Anemia during in second trimester (Acute) LGSIL on Pap smear of cervix (Acute) ASCUS with positive high risk human papillomavirus of vagina (Acute) Chlamydia infection affecting (Acute) Tobacco use complicating (Acute) (Acute) Supervision of other normal (Acute) Abnormal test (Resolved) Cellulitis, face (Resolved) s/p PPD # 2 1. routine post delivery care 2. breast feeding- support given 3. rh positive 4. rubella immune
--- NOTE | 2019-05-06 04:33 | DCINST_ITS ---
Discharge Diet: No Restrictions Discharge Activity: Return to Normal Activity, May not drive while taking narcotic pain medications., May Shower May resume sexual activity in: 4-6 weeks Call your doctor if your incision/area has: Continuous Slow Oozing, Sudden Increased Bleeding, Increased Pain/ Swelling, Increased Redness, Foul Smelling Discharge Additional Instructions: If you experience any of the following, contact your healthcare provider. * Bleeding that soaks a pad every hour for 2 hours * Fever 100.4 or higher * Unrelieved incision or abdominal pain * Swelling, redness, discharge or bleeding from your incision or episiotomy site * Your incision begins to separate * Problems urinating (including inability to urinate or burning while urinating). * Visual changes * Severe headache * Flu-like symptoms * Pain or redness in one of both of your breasts * Pain, warmth, tenderness or swelling in your legs, especially the calf area * Frequent nausea and vomiting * Symptoms of depression or anxiety If you experience any of the following, call 911 or go to the nearest Emergency Room. * Chest pain * Problems breathing * Seizure activity * Partial or complete paralysis of a body part, slurred speech, weakness or drooping of the face, or a sudden inability to walk or hold your balance Allergies/Adverse Reactions: Allergies diphenhydramine [From Benadryl] Allergy (Verified 05/04/19 07:39) Anaphylaxis Penicillins Allergy (Verified 05/04/19 07:32) Unknown Medications to take at Discharge Vits [Prenatabs FA ] 1 tab PO DAILY #30 tab MDD 04/16/19 Albuterol Inhaler [Ventolin Hfa] 05/04/19 Ferrous Sulfate 05/04/19 Naproxen [Naprosyn] 250 - 500 mg PO Q8H PRN PRN #30 tab 05/06/19 The following prescriptions were given: Naproxen [Naprosyn] 250 - 500 mg PO Q8H PRN PRN #30 tab PRN Reason: MILD PAIN Transmission Status: Pending to [facility] Please Follow Up With: Mitra Rosario MD - [phone] When: Call to make an appointment with your doctor in 6 weeks. If you had elevated Blood pressure or 4th degree laceration you will need to be seen in 2 weeks. Primary Care Physician: Paola Delgado [Primary Care Provider] - Test Results: Test results from this visit will be discussed in further detail at your follow- up appointment, if applicable.
[2019-05-06 09:00] VITALS: BP 122/84; PULSE 86; RESP 14; TEMP 36.7; O2SAT 99
[2019-05-06] MEDS: Acetaminophen 500 MG Tablet 1000 MG PO (09:07)
[2019-05-06 13:38] VITALS: BP 107/70; PULSE 90; RESP 18; TEMP 36.8; O2SAT 98
== END 2019-05-06 17:00 | disposition home or self-care (01) | DRG 560 ==
PROVIDERS: Admitting Provider Obstetrics & Gynecology; Referring Provider Obstetrics & Gynecology; Visit Provider Obstetrics & Gynecology
DX: O75.9 Complication of labor and delivery, unspecified (principal); O99.334 Smoking (tobacco) complicating childbirth; F17.200 Nicotine dependence, unspecified, uncomplicated; O99.02 Anemia complicating childbirth; D64.9 Anemia, unspecified; O99.52 Diseases of the respiratory system complicating childbirth; J45.909 Unspecified asthma, uncomplicated; Z3A.40 40 weeks gestation of pregnancy; Z37.0 Single live birth
CPT/HCPCS: 59025; 59050; 85025; 85610; 85730; 86850; 86900; 86901; 99218; J7120; G0378

== ENCOUNTER → 2020-04-23 12:57 | Outpatient (CLI) | payer MEDICAID, SELFPAY ==
[2020-04-23 11:10] VITALS: BMI 36.8
[2020-04-23 13:16] LABS: Absolute Lymphocyte Count 1.97 X10^3/uL (0.83-4.51); Absolute Neutrophil Count 10.2 X10^3/uL (2.0-7.7); Basophil# 0.03 X10^3/uL; Basophil% 0.2 % (0-1); Eosinophil# 0.14 X10^3/uL; Eosinophils% 1.1 % (0-5); Hematocrit 34.5 % (37-47); Hemoglobin 11.4 g/dL (12.0-15.0); Lymphocyte # 1.97 X10^3/ul (4.0); Lymphocyte % 15.2 % (19-41); Mean Corpuscular Hgb 31.4 pg (27.0-32.0); Monocyte# 0.56 X10^3/uL; Monocyte% 4.3 % (0-10); NRBC Flagged by Analyzer 0 % (0-5); Neutrophil # 10.15 X10^3/uL (2.7-7.7); Neutrophil % 78.5 % (47-70); Platelet Count 197 K/mm3 (150-450); RBC Distribution Width CV 13.3 % (11.6-14.6); Red Blood Count 3.63 M/mm3 (4.2-5.4); White Blood Count 12.9 K/mm3 (4.4-11.0)
[2020-04-23 13:32] LABS: Glucose Challenge Gest 1H 50g 90 mg/dL (70-140)
[2020-04-23 13:40] LABS: Amphetamine Urine VISTA NEGATIVE (<1000 ng/mL); Barbiturate Urine VISTA NEGATIVE (< 200 ng/mL); Benzodiazepine Urine VISTA NEGATIVE (< 200 ng/mL); Cocaine Urine VISTA NEGATIVE (< 300 ng/mL); Ecstacy Urine VISTA NEGATIVE (< 500 ng/mL); Methadone Urine VISTA NEGATIVE (< 300 ng/mL); PCP Urine VISTA NEGATIVE (< 25 ng/mL); THC Urine VISTA NEGATIVE (< 50 ng/mL); Vista UDS pH Range 6
[2020-04-23 14:20] LABS: HIV - WCH Non-Reactive (Nonreactive); Hepatitis B Surface Antigen Non-Reactive (Nonreactive); Hepatitis C Antibody Non-Reactive (Nonreactive); Rubella IgG 102.2 IU/mL
[2020-04-24 15:49] LABS: Chlamydia Trachomatis by PCR Negative (Negative); Neisserai gonorrhoeae by PCR Negative (Negative)
[2020-04-24 15:50] LABS: Probe Check PASS; Sample Adequacy Control PASS; Specimen Processing Control PASS
[2020-04-26 06:28] LABS: Rapid Plasmin Reagin (RPR) NONREACTIVE (NONREACTIVE)
== END ==
PROVIDERS: Referring Provider Obstetrics & Gynecology; Visit Provider Obstetrics & Gynecology
DX: Z34.90 Encounter for supervision of normal pregnancy, unspecified, unspecified trimester (principal)
CPT/HCPCS: 36415; 80307; 82950; 85025; 86592; 86703; 86762; 86803; 86850; 86900; 86901; 87086; 87088; 87340; 87491; 87591

== ENCOUNTER → 2020-05-18 15:45 | Outpatient (CLI) | payer MEDICAID, SELFPAY ==
[2020-05-09 08:12] VITALS: BMI 36.8
--- NOTE | 2020-05-18 15:46 | US_ITS ---
STUDY: SECOND AND THIRD TRIMESTER OBSTETRICAL ULTRASOUND - LIMITED REASON FOR EXAM: Female, 34 years old GROWTH LMP: 09/28/2019. PRIOR ULTRASOUND: None. TECHNIQUE: Transabdominal TECHNICAL QUALITY: Adequate. FINDINGS: There is a single intrauterine fetus. The fetus is in a cephalic presentation. There is demonstrated cardiac activity with a heart rate of 132 bpm. There is a normal amniotic fluid volume. The largest amniotic fluid pocket measures 4.3 cm. The amniotic fluid index (MAICOL) is 14.4 cm. The placenta is fundal and posterior in location. There are Grade 1 placental changes. The cervix measures 3.3 cm in length. BIOMETRY: BPD: 8.17 cm: 32 weeks, 5 days HC: 29.95 cm: 33 weeks, 1 days AC: 28.74 cm: 32 weeks, 5 days FL: 6.46 cm: 33 weeks, 2 days Age by LMP: 33 weeks, 2 days. BONNY by LMP: 07/04/2020. age by current US: 33 weeks, 0 days. BONNY by current US: 07/06/2020. Estimated weight: 2108 grams, +/- 316 grams, 43 percentile. US/OB Limited With Biometrics IMPRESSION: Single live intrauterine gestation with a mean gestational age of 33 weeks. Electronically Signed: Tyron Melendez, at 12:05 EDT , Service support ,
== END ==
PROVIDERS: Referring Provider Obstetrics & Gynecology; Visit Provider Obstetrics & Gynecology
DX: Z34.90 Encounter for supervision of normal pregnancy, unspecified, unspecified trimester (principal); O09.30 Supervision of pregnancy with insufficient antenatal care, unspecified trimester
CPT/HCPCS: 76816

== ENCOUNTER 2020-06-05 15:30 | Outpatient (CLI) | payer MEDICAID, SELFPAY ==
[2020-05-25 15:44] VITALS: BMI 36.8
[2020-06-05 15:42] VITALS: BMI 35.6
[2020-06-05 15:43] VITALS: BP 114/82; PULSE 90; TEMP 36.8; O2SAT 97
[2020-06-05 16:23] LABS: ROM Internal Control Test YES-OK TO RESULT pt. (Internal QC); ROM Patient Test Negative (Negative)
--- NOTE | 2020-06-05 16:30 | OB.TRI.PN ---
Progress Notes Date of Service: 06/05/20 Progress Note: Patient presents for triage evaluation secondary to possible ruptured membranes FHT: 130 Moderate variability reactive no decelerations category I tracing [place]: irregular Contractions Assessment and plan: false labor negative rom plus Reactive NST, reassuring maternal and status patient discharged to home to follow-up as scheduled. See problem list details for additional plan information. Laboratory Studies: Laboratory Tests 06/05/20 Range/Units 15:55 Vag Amniotic Fld Detect Negative (Negative) - Problem List (1) Intact amniotic membranes Status: Acute Multi Select Codes - Urinary/Genital Urinary/Genital CPT Codes: 12100-23 non-stress test Interp
[2020-06-06 20:20] VITALS: TEMP 36.5; O2SAT 98
[2020-06-06 20:23] VITALS: BP 117/74; PULSE 100
== END 2020-06-05 16:35 | disposition home or self-care (01) ==
PROVIDERS: Referring Provider Obstetrics & Gynecology; Visit Provider Obstetrics & Gynecology
DX: O47.9 False labor, unspecified (principal); Z3A.00 Weeks of gestation of pregnancy not specified
CPT/HCPCS: 59050; 84112; 99218; G0378

== ENCOUNTER 2020-06-06 20:06 | Outpatient (CLI) | payer MEDICAID, SELFPAY ==
[2020-06-05 15:42] VITALS: BMI 35.6
[2020-06-06 20:21] VITALS: BMI 35.6
[2020-06-06 20:50] LABS: ROM Internal Control Test YES-OK TO RESULT pt. (Internal QC); ROM Patient Test Negative (Negative)
--- NOTE | 2020-06-07 08:29 | OB.TRI.PN_ITS ---
Progress Notes Date of Service: 06/06/20 Progress Note: Patient presents for triage evaluation secondary to decreased movement FHT: 140 Moderate variability reactive no decelerations category I tracing [place]: irregular Contractions Assessment and plan: decreased movement Reactive NST, reassuring maternal and status patient discharged to home to follow-up as scheduled. See problem list details for additional plan information. Laboratory Studies: Laboratory Tests 06/06/20 Range/Units 20:20 Vag Amniotic Fld Detect Negative (Negative) - Problem List (1) Decreased movements, third trimester, fetus 1 Status: Acute Multi Select Codes - Urinary/Genital Urinary/Genital CPT Codes: 29375-27 non-stress test Interp
== END 2020-06-06 21:05 | disposition home or self-care (01) ==
LOC: WPOUT 20:10 → OBT 20:10
PROVIDERS: Visit Provider Obstetrics & Gynecology
DX: O36.8130 Decreased fetal movements, third trimester, not applicable or unspecified (principal); Z3A.00 Weeks of gestation of pregnancy not specified
CPT/HCPCS: 59025; 59050; 84112; 99218; G0378

== ENCOUNTER → 2020-06-08 | Outpatient (CLI) | payer MEDICAID, SELFPAY ==
[2020-06-08 16:14] VITALS: BMI 36.1
== END | disposition home or self-care (01) ==
LOC: LABSPEC 16:56
PROVIDERS: Referring Provider Obstetrics & Gynecology; Visit Provider Obstetrics & Gynecology
DX: Z34.90 Encounter for supervision of normal pregnancy, unspecified, unspecified trimester (principal)
CPT/HCPCS: 87081

== ENCOUNTER 2020-06-24 00:50 | Outpatient (CLI) | payer MEDICAID, SELFPAY ==
[2020-06-21 16:24] VITALS: BMI 37.2
[2020-06-24 01:16] VITALS: BP 118/74; PULSE 100; PULSE 101; TEMP 36.6; O2SAT 97
[2020-06-24 01:25] VITALS: BMI 36.8
[2020-06-24 01:55] LABS: ROM Internal Control Test YES-OK TO RESULT pt. (Internal QC)
[2020-06-24 01:56] LABS: ROM Patient Test POSITIVE (Negative)
--- NOTE | 2020-06-25 08:33 | OB.TRI.PN ---
Progress Notes Date of Service: 06/24/20 Progress Note: Patient presents for triage evaluation secondary to leakage of fluid and contractions. She was found to be ruptured and it was recommended that she be admitted to the hospital for active labor. It was noted that there were concerns about her other child being in the car. Patient and her became upset and decided to leave against medical advice. AMA form was signed and patient left the hospital. FHT: Moderate variability reactive no decelerations category I tracing [place]: q3-5 min Contractions Assessment and plan: Reactive NST. Patient left hospital against medical advice. See problem list details for additional plan information. Laboratory Studies: Laboratory Tests 06/24/20 Range/Units 01:20 EST Vag Amniotic Fld Detect POSITIVE H (Negative) Multi Select Codes - Urinary/Genital Urinary/Genital CPT Codes: 28725-01 non-stress test Interp
== END 2020-06-24 01:50 | disposition left against medical advice (07) ==
PROVIDERS: Referring Provider Obstetrics & Gynecology; Visit Provider Obstetrics & Gynecology
DX: O26.899 Other specified pregnancy related conditions, unspecified trimester (principal); N85.8 Other specified noninflammatory disorders of uterus; Z3A.00 Weeks of gestation of pregnancy not specified
CPT/HCPCS: 59025; 59050; 84112; 99218; G0378

== ENCOUNTER → 2020-08-09 16:56 | Outpatient (CLI) | payer MEDICAID, SELFPAY ==
[2020-08-09 14:34] VITALS: BMI 33.8
[2020-08-15 16:19] LABS: HPV APTIMA, High Risk Positive (Negative)
== END ==
PROVIDERS: Visit Provider Obstetrics & Gynecology
DX: Z12.4 Encounter for screening for malignant neoplasm of cervix (principal)
CPT/HCPCS: 87624; 88175; G0145

== ENCOUNTER → 2025-05-10 | Outpatient (CLI) | payer SELFPAY ==
--- NOTE | 2025-05-10 09:20 | CER_PTH ---
PATIENT: YONNY CARDOSO LOC: [facility] #:[id number] AGE/SX: 39/F ROOM: RE05/10/[address]: Dr. Mitra Rosario MD : [id number] BED: DIS: 05/10/2025 SPEC #: [id number] RECD: 05/10/25 11:02 STATUS: LASHELL YANIRA #: [id number] KAREN: 05/10/25 09:[address]: Mitra Rosario DEPT: SURGICAL PATHOLOGY RECD BY: Chuy Núñez ENTERED: 05/10/25 11:32 SP TYPE: CERV OTHR DR: Paola [facility] Tissues: A - Uterine cervix, NOS B - Endocervical Procedures: Surgery Specimen Level IV HEADER OPERATION: Colposcopy PRE-OP DIAGNOSIS: Abnormal PAP smear of cervix, HGSIL and HPV TISSUE SUBMITTED: A- 12o'clock, B- ECC MICROSCOPIC DIAGNOSIS A. Uterine cervix, 12:00, colposcopic biopsy: - High grade squamous intraepithelial lesion (LILIANE II - III) - An immunohistochemical stain for p16 (full thickness positive) confirms the diagnostic interpretation B. Endocervix, curettage: - Strips of dysplastic squamous epithelium (See COMMENT) COMMENT The severity of the dysplasia in Part B cannot be determined because the epithelium is not full thickness and no submucosa is present. MICROSCOPIC DESCRIPTION Slides are reviewed. The immunohistochemical control has appropriate reactivity. GROSS DESCRIPTION Received in 2 formalin containers labeled with the patient's name and date of . Designated as: A. 12 o'clock is a 0.7 x 0.3 x 0.1 cm hughes-pink tissue fragment. Entirely submitted in 1 cassette. B. ECC are minute flecks of possible tissue, free-floating within the container. The specimen is entirely submitted in 1 cassette, for cellblock preparation. FL 05/10/2025 CPT:26961u4
== END | disposition home or self-care (01) ==
LOC: LABSPEC 09:51
PROVIDERS: Referring Provider Obstetrics & Gynecology; Visit Provider Obstetrics & Gynecology
DX: R87.613 High grade squamous intraepithelial lesion on cytologic smear of cervix (HGSIL) (principal)
CPT/HCPCS: 88305